=== PATIENT | female | born 1965 | race Two or more races ===

== ENCOUNTER → 2025-08-29 | Outpatient (CLI) | payer MEDICAID, SELFPAY ==
--- NOTE | 2025-08-29 13:32 | XR_ITS ---
Examination: Toes, left foot 3 views Technique: Toes AP oblique lateral 3 views Date and time of exam: August 29, 2025 (1333 hours INDICATIONS: Third digit pain 6 months FINDINGS: No fracture. No cortical bone destruction No foreign body IMPRESSION: No fracture. No foreign body
== END | disposition home or self-care (01) ==
LOC: CDIM 13:26
PROVIDERS: PCP Specialist; Referring Provider Obstetrics & Gynecology; Visit Provider Obstetrics & Gynecology
DX: M79.675 Pain in left toe(s) (principal)
CPT/HCPCS: 73660